=== PATIENT | female | born 1970 | race Caucasian/White ===

== ENCOUNTER 2017-02-19 09:16 | Emergency (ER) | payer OTHER ==
[~2017-02-19 09:16] MED LIST: MULT-506 PO; OXYC1TAB3 PO
[2017-02-19 09:22] VITALS: TEMP 36.7
[2017-02-19 10:19] LABS: URINE APPEARANCE CLOUDY (CLEAR); URINE COLOR DK YELLOW; URINE EPITHELIAL CELL AUTO >30 /lpf (0-5); URINE NITRITE NEG (NEG); URINE SPECIFIC GRAVITY 1.026 (1.000-1.030); UROBILINOGEN NEG (NEG); ZZUR CULT IF INDIC CLEAN CATCH YES
[2017-02-19 10:21] LABS: BASO % 0.4 %; BASO ABS # 0.03 K/uL (0-0.2); COMPLETE YES; EOS % 0.2 %; HEMATOCRIT 42.9 % (37-47); IG% 0.1 %; LYMPH % 38.9 %; LYMPH ABS # 3.13 K/uL (1.2-3.4); MEAN CELL VOLUME 88.5 fL (80-100); MEAN CORPUSCULAR HEMOGLOBIN 30.7 pg (25-34); MEAN CORPUSCULAR HGB CONC 34.7 g/dl (32-36); MEAN PLATELET VOLUME 10.1 fL (7.4-10.4); MONO % 5.1 %; NEUT % 55.3 %; PLATELET COUNT 235 K/uL (130-400); RED BLOOD COUNT 4.85 M/uL (4.2-5.4); WHITE BLOOD COUNT 8.05 K/uL (4.8-10.8)
[2017-02-19 10:29] LABS: MANUAL MICROSCOPIC REQUIRED? NO; REVIEW REQ? YES; URINE BILIRUBIN NEG (NEG)
[2017-02-19 10:32] LABS: URINE MUCUS PRESENT (NONE PRSENT)
--- NOTE | 2017-02-19 10:33 | DIAGNOSTIC IMAGING REPORT ---
HEAD WITHOUT CONTRAST (CT) CLINICAL HISTORY: 46 years-old Female with memory loss. Acute memory loss and altered mental status. TECHNIQUE: Multiple axial CT images of the head were obtained without contrast. A dose lowering technique was utilized adhering to the principles of ALARA. CT DOSE: 537.48 mGy.cm COMPARISON: None. FINDINGS: No acute intracranial hemorrhage, midline shift, intracranial mass, hydrocephalus, territorial ischemia or abnormal extra-axial collection. The calvarium is intact. The paranasal sinuses, mastoid air cells, and middle ear cavities are clear. IMPRESSION: No acute intracranial abnormality. The above report was generated using voice recognition software. It may contain grammatical, syntax or spelling errors. Electronically signed by: Lakhwinder Dennis M.D. 02/19/2017 10:32 AM Dictated Date/Time: 02/19/2017 10:29 AM
[2017-02-19 10:40] LABS: ALT/SGPT 15 U/L (12-78); BLOOD UREA NITROGEN 8 mg/dl (7-18); BUN/CREATININE RATIO 10.4 (10-20); CALCIUM 9.1 mg/dl (8.5-10.1); CARBON DIOXIDE 28 mmol/L (21-32); CHLORIDE 101 mmol/L (98-107); CREATININE 0.78 mg/dl (0.60-1.20); GLUCOSE 93 mg/dl (70-99); POTASSIUM 3.2 mmol/L (3.5-5.1); SODIUM 136 mmol/L (136-145)
[2017-02-19 10:41] LABS: ACETAMINOPHEN < 2 ug/ml (10-30)
[2017-02-19] MEDS ORDERED: NICO14DI31 TD (10:43)
[2017-02-19] MEDS ORDERED: ESCI1TAB6 PO (10:43)
[2017-02-19] MEDS ORDERED: ALPR-411 PO (10:43)
[2017-02-19 10:51] LABS: ALKALINE PHOSPHATASE 49 U/L (45-117); AST/SGOT 11 U/L (15-37)
[2017-02-19 11:05] LABS: BENZODIAZEPINE, URINE POS (NEG); COCAINE,URINE NEG (NEG); PHENCYCLIDINE, URINE NEG (NEG)
--- NOTE | 2017-02-19 11:29 | DIAGNOSTIC IMAGING REPORT ---
ABD/PELVIS WITHOUT FOR STONE HISTORY: 46 years-old Female abdominal pain/calcium oxalate in urine acute generalized abdominal pain with weight loss COMPARISON: None available TECHNIQUE: Multiple axial CT images of the abdomen and pelvis were obtained without IV contrast. A dose lowering technique was used consistent with the principals of CL. FINDINGS: Lung bases are generally clear with only minimal dependent subsegmental atelectasis. No pneumatosis or pneumoperitoneum. The imaged inferior cardiac chambers are unremarkable. Intermediate attenuating round circumscribed 1.5 x 1.1 cm lesion is noted within the lateral left hepatic lobe. Liver is otherwise unremarkable. Spleen, pancreas, gallbladder and adrenal glands are within normal limits. Kidneys, ureters and urinary bladder are unremarkable without renal calculi right arthrosis. Indeterminate 4 mm linear calcification is noted adjacent to the left adnexum. 2.2 x 2.1 cm cystic lesion of the left adnexum is also noted. Uterus and right adnexum are unremarkable. Aorta is normal in course and caliber. No bulky adenopathy identified. There is no bowel obstruction or focal bowel wall thickening identified. The large bowel is within normal limits. There is an air-filled tubular structure of the right lower quadrant noted suggesting a normal appendix. No right lower quadrant inflammatory changes identified. Soft tissues are unremarkable. Bones appear intact. IMPRESSION: 1. Nonspecific 4 mm calcification of the left hemipelvis is likely extra ureteral. No left-sided obstructive uropathy. No renal calculi identified. 2. Cystic structure of the left adnexum, 2.2 cm suggests dominant follicle. 3. No evidence of acute appendicitis. 4. Intermediate attenuating 1.5 cm lesion of the lateral left hepatic lobe is indeterminate. The above report was generated using voice recognition software. It may contain grammatical, syntax or spelling errors. Electronically signed by: Lakhwinder Dennis M.D. 02/19/2017 11:27 AM Dictated Date/Time: 02/19/2017 11:19 AM
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
[2017-02-19 12:23] VITALS: BP 125/82; PULSE 65; O2SAT 99
[2017-02-21 14:51] LABS: HYDROXYETHYLFLURAZEPAM CONF NEGATIVE NG/ML (CUTOFF=50); HYDROXYMIDAZOLAM NEGATIVE NG/ML (CUTOFF=50); HYDROXYTRIAZOLAM CONF NEGATIVE NG/ML (CUTOFF=50); TEMAZEPAM CONF NEGATIVE NG/ML (CUTOFF=50)
== END 2017-02-19 12:25 | disposition home or self-care (01) ==
LOC: C.EDB 09:19 → C.EDA 12:25
DX: N83.209 Unspecified ovarian cyst, unspecified side (principal); R10.9 Unspecified abdominal pain; F32.9 Major depressive disorder, single episode, unspecified; K76.9 Liver disease, unspecified; Z87.891 Personal history of nicotine dependence; Z79.899 Other long term (current) drug therapy; Z98.890 Other specified postprocedural states

== ENCOUNTER 2017-03-05 12:53 | Inpatient (IN) | payer OTHER ==
[~2017-03-05] VITALS: Ht 157.5 cm; Wt 43.1 kg
[~2017-03-05 12:53] MED LIST changes: +ALPR-411 PO; +ESCI1TAB6 PO; -MULT-506 PO; +NICO14DI31 TD; -OXYC1TAB3 PO
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
[2017-03-05 14:27] LABS: BASO % 0.4 %; BASO ABS # 0.03 K/uL (0-0.2); EOS % 0.3 %; EOS ABS # 0.02 K/uL (0-0.5); HEMOGLOBIN 14.6 g/dL (12.0-16.0); IG# 0.01 K/uL (0.00-0.02); LYMPH % 36.1 %; LYMPH ABS # 2.59 K/uL (1.2-3.4); MEAN CELL VOLUME 88.7 fL (80-100); MEAN CORPUSCULAR HEMOGLOBIN 30.1 pg (25-34); MONO ABS # 0.43 K/uL (0.11-0.59); NEUT % 57.1 %; NEUT ABS # 4.09 K/uL (1.4-6.5); PLATELET COUNT 233 K/uL (130-400); RED CELL DISTRIBUTION WIDTH CV 11.8 % (11.5-14.5); RED CELL DISTRIBUTION WIDTH SD 38.1 fL (36.4-46.3); WHITE BLOOD COUNT 7.17 K/uL (4.8-10.8)
[2017-03-05 14:36] LABS: ALT/SGPT 19 U/L (12-78); AST/SGOT 14 U/L (15-37); BLOOD UREA NITROGEN 11 mg/dl (7-18); CALCIUM 8.6 mg/dl (8.5-10.1); CARBON DIOXIDE 27 mmol/L (21-32); CREATININE 0.88 mg/dl (0.60-1.20); GLUCOSE 85 mg/dl (70-99); POTASSIUM 3.3 mmol/L (3.5-5.1); SODIUM 138 mmol/L (136-145)
[2017-03-05 14:47] LABS: ALKALINE PHOSPHATASE 43 U/L (45-117); TOTAL PROTEIN 6.9 gm/dl (6.4-8.2)
[2017-03-05] MEDS ORDERED: POTASSIUM CHLORIDE 20 MEQ/15 ML UDC PO STA (15:00)
[2017-03-05] MEDS ORDERED: MAGNESIUM OXIDE 400 MG TAB PO STA (15:00)
[2017-03-05] MEDS ORDERED: MULT-506 PO (15:35)
[2017-03-05] MEDS ORDERED: PARO1TAB27 PO (15:35)
[2017-03-05] MEDS ORDERED: KLN/5 PO (15:35)
[2017-03-05] MEDS ORDERED: hydrOXYzine HCL 25 MG TAB PO PRN ×2 (17:45)
[2017-03-05] MEDS ORDERED: MAGNESIUM HYDROXIDE SUSP 30 ML UDC PO PRN (17:45)
[2017-03-05] MEDS ORDERED: BISMUTH SUBSALICYLATE PER ML OMNICELL CHARGE PO PRN (17:45)
[2017-03-05] MEDS ORDERED: ACETAMINOPHEN 325 MG TAB PO PRN (17:45)
[2017-03-05] MEDS ORDERED: ALUMINUM/MAGNESIUM SUSP 30 ML UDC PO PRN (17:45)
[2017-03-05] MEDS ORDERED: SODIUM CHLORIDE 0.65% NA SOLN 45 ML (OCEAN) PRN (17:45)
--- NOTE | 2017-03-05 18:01 | Psychiatric Progress Notes ---
Psychiatric Progress Note Date of Service Mar 05, 2017. Notes Patient accepted for admission, apparently seen once previously in ED for ? [facility] clearance [facility]. Started Lexapro earlier this month, PDMP query shows a Xanax 0.5 mg script #[address] Tiki Anderson on 02/25 followed by Klonopin Rx by Dr. Peñaloza on 03/01 who started Paxil. Hasn't been taking meds regularly by report. On nicotine patch (staff to confirm dose) for smoking cessation. Orders entered.
[2017-03-05 18:09] VITALS: O2SAT 98
[2017-03-05 18:32] VITALS: BP 123/78; PULSE 67; TEMP 37; Ht 157.5 cm; Wt 43.1 kg
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
[2017-03-05] MEDS: CLONAZEPAM 0.5 MG TAB PO SCH (21:30)
--- NOTE | 2017-03-06 02:18 | NUR ---
admission orders and clinical information reviewed
[2017-03-06 06:37] VITALS: BP_SYST 87; BP_SYST 98; BP_DIAS 60; BP_DIAS 65; PULSE 58; PULSE 64; TEMP 37.1
[2017-03-06] MEDS ORDERED: PAROXETINE 20 MG TAB PO SCH (09:00)
[2017-03-06] MEDS: MULTIVITAMIN TAB PO SCH (09:14)
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
--- NOTE | 2017-03-06 12:29 | NUR ---
Pt is extremely depressed with flat affect and dysphoric mood. She continues to demonstrate severe depressive symptoms. Pt cries easily and speaks in a quiet tone of voice. She admits to active suicidal ideation prior to admission, is able to contract for safety in the hospital. She is missing her children and wishes she was home. States her one child is with pt's mother and the other is with the father. Pt's is at their house and pt is staying at her mother's house. Encouraging pt to eat due to wt loss prior to admission. She is eating some lunch presently.
--- NOTE | 2017-03-06 14:19 | NUR ---
Introduced self to pt's mother who came to visit. Discussed having a family meeting when pt better able to participate which mother is agreeable to (mother also indicated that she knows pt not ready yet). Asked mother about possible eating disorder and mother says that she doesn't think that pt's weight is caused by an eating disorder. She says until recently that pt always enjoyed eating and believes the stress has been a factor. Mother says that pt weighed 91lbs at her last PCP appt and that the appt prior she weighed 113lbs.
--- NOTE | 2017-03-06 14:33 | NUR ---
Malnutrition screen identified patient. See linked assessment. Addendum: 03/06/17 at [address] Amended: Links added.
[2017-03-06] MEDS ORDERED: NICOTINE POLACRILEX 2 MG GUM MT PRN (18:30)
[2017-03-06] MEDS: NICOTINE 14 MG/24 HR TDSY TD SCH (19:31)
[2017-03-06] MEDS: CLONAZEPAM 0.5 MG TAB PO SCH (20:51)
--- NOTE | 2017-03-06 22:29 | NUR ---
Pt has spent a large amount of time in her room this evening in bed. Pt has a flat affect and is very limited in her interactions. She had a visit from her mother this afternoon and again from her father and son this evening. Pt took her HS medications without difficulty. Pt continues on q 15 minute checks.
--- NOTE | 2017-03-07 02:43 | NUR ---
24 hour chart orders reviewed.
[2017-03-07 06:40] VITALS: BP 93/59; PULSE 64; TEMP 36.8
[2017-03-07] MEDS: PAROXETINE 20 MG TAB PO SCH (08:50)
[2017-03-07] MEDS: NICOTINE 14 MG/24 HR TDSY TD SCH (08:50)
[2017-03-07] MEDS: ARIPIprazole TAB 5 MG TAB PO SCH (08:50)
[2017-03-07] MEDS: MULTIVITAMIN TAB PO SCH (08:50)
[2017-03-07] MEDS ORDERED: ACETAMINOPHEN 325 MG TAB PO PRN (09:30)
--- NOTE | 2017-03-07 11:14 | NUR ---
Pt. ate 80% of breakfast and has attended all AM programming with minimal prompting. Responses are somewhat slowed but are appropriate. Affect is flat and pt. looks depressed. Pt. plans to visit with her mother, who is a support, this afternoon.
--- NOTE | 2017-03-07 11:20 | Psychiatric Progress Notes ---
Progress Note Date of Service Mar 07, 2017. Interval History Eli Pulido is a 46-year-old female admitted on Mar 05, 2017 at 17:45 who currently is staying temporarily with her parents and her teenaged son. Eli Pulido was admitted on a 302 involuntary commitment. Patient is admitted from home. The patient was brought to the ED by family. Information provided by the patient is considered to be reliable, but is somewhat limited by her impaired concentration and focus. Chief Complaint "I just feel sad, I want to go home". Subjective Patient was seen & assessed interval progress reviewed with Nursing. Reported pt continues to appear flat and easily overwhelmed. Mother has continued to visit and make phone calls to check in periodically. Pt was seen today in order to assess progress since admission. Pt states she feels confused groggy. She is unable to remember the majority of her visit with the psychiatrist yesterday and asks about medication changes as she is unable to recall their discussion. Pt states she has been noticing confusion and "felt like I had a stroke the other day at work". She admits she knows she is not usually like this. Pt reports she feels her is upset with her for choosing to no longer visit with his family. She states he was with his family in [place] for a few weeks, during which time she and her teenage son have been staying with the patient's parents. Pt reports being afraid that her would bring his family home with him, and she does not like to be around them as she states they constantly argue and she feels uncomfortable. This has caused tension in her relationship with her recently. She states she has had visits from her parents and son yesterday evening, but has yet to hear from her . She reports she received conflicting recommendations yesterday about whether to reach out to him, so she chose not to contact him. She is scared he will be upset that she is in the hospital as he has gotten angry about medical bills in the past with their children. Pt initially reports current SI, and then states, "well not really, but I am still really sad". She reports headache this morning. Pt had just been given increased dose of Paxil 30mg and first dose of Abilify 2.5mg prior to my meeting with her. She voices no concerns at this point in time. Review of Systems Psych: denies symptoms other than stated above Constitutional: reports headache Cardiovascular: denied GI: denied Neurologic: denied Remainder of 10 body systems also reviewed and denied other than noted above. Sleep Information Total Hours of Sleep: 7.25 Meal Information Percent of Breakfast Consumed: 80 Percent of Lunch Consumed: 60 Percent of Dinner Consumed: 50 Mental Status Exam During interview pt is: alert and oriented, cooperative Appearance: appropriately dressed (in robe and pajamas) Eye contact is: fair Motor behavior is: psychomotor retardation Speech: other (slowed and quiet with little spontaneity.) Affect: depressed, flat Mood is: depressed Thought process: blocking, concrete, other (confused and slowed in responses to questioning) Thought content: reality based without delusions (continuing with statements about 's anticipated response to medical bills), hopelessness, worthlessness Suicidal thought are: present, Plan: denied, Intent: denied Homicidal thoughts are: denied Hallucinations: denies auditory, denies visual Cognition: attention grossly intact, language grossly intact, other ( difficulty remembering conversations from yesterday. ) Intelligence estimated to be: average Insight: limited Judgement: limited Impression This 46-year-old woman presents with a history of recurrent major depressive episodes that began during late adolescence or early adulthood. Her most recent episode evidently began 1 month or more ago. Patient reportedly ask her mother to kill her several days ago, she acknowledges recurrent suicidal thoughts, and has severe vegetative signs and symptoms of depression that, among other things, have resulted in a 30 pound weight loss with the patient is substantially below her ideal body weight. She requires assistance from her mother for activities of daily living, such as dressing, arising from bed, showering, and eating. The patient acknowledges that she has not been adherent with the recommended medications as prescribed by a tele-psychiatrist, and, more recently, by her primary care physician. Plan (1) Suicidal ideation 03/06/17 -- the patient acknowledges ongoing intermittent suicidal thoughts. She tells me that she has never had an active suicidal plan, although the record indicates that she did ask her mother to "kill her." She repeatedly did not respond to questions concerning active suicidal intent, but responds instead by saying "I just want to get better." She tells me that she will not make any suicide attempts in the hospital because she fears that this will lengthen her hospital stay. 03/07/17 -- patient is vague about current suicidal ideation, admitting at first , then stating she "just feels sad". (2) Depression 03/06/17 - the patient has been started on paroxetine 20 mg daily, and thus far has been able to tolerate it well. She denies any current side effects. Today, we will increase her dose of Paxil to 30 mg daily, and began aripiprazole 2.5 mg daily as an adjunct. I'm also concerned that the patient may have an underlying psychosis involving her . For example, she trembles with fear when considering whether to inform her that she has been hospitalized because she believes she will "scream at me" and "be furious" because she is using his insurance for the hospitalization. The patient does contract for safety in the hospital, and has some future orientation in that she sets a goal going home to be with her family and "getting better. 03/07/17 - Pt received increased dose of Paxil 30mg along with first dose of Abilify 2.5mg this morning. Received just prior to my visit with her, therefore unable to assess tolerance this early in the dose. Pt is ongoing with concerns that her will react poorly to the news of her hospitalization. She questions plan for medications and it was explained that the increased dose of Paxil and adding Abilify were to target her ongoing depression and suicidal thoughts as well as work to clear any confusion or clouding she may be experiencing. Pt inquires about length of stay and was informed that we would be meeting with her daily to assess her progress and gauge timing of discharge. No changes to psychiatric medications at this time as she just received increased doses today. Tylenol was ordered for her headache which she was told she would need to ask for at the nurses station. Discharge / Aftercare Planning Primary Care Physician: Name: Dr. Peñaloza Dental Prosthetist: Name: none Visit Code E&M Code: 95533 Inventory Assets Strengths: Educated. Has a profession. Seeking to advance her career. Supportive family. Actually concerned about her children. Needs: The patient is severely depressed and grossly underweight. A dietary consult is being arranged. 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 She explains that she had become so depressed that she wasn't able to focus, concentrate and attend to her daily tasks at work.) Stable relationships: Yes Supportive family: Yes Good rapport with provider: Yes Absence of risk factors above: No Data Vital Signs Last 24 Hrs: Date Time Temp Pulse Resp B/P (MAP) Pulse Ox O2 Delivery O2 Flow Rate FiO2 03/07/17 06:40 36.8 64 16 93/59 93/59 Meds Administered Last 24 Hrs: Meds Administered (Past 24Hrs) Medications (Trade) Dose Ordered Sig/Gerson Route Start Time Stop Time Status Last Admin Dose Admin Magnesium Oxide (Mag-Ox Tab) 800 mg ONE STAT PO 03/05/17 15:00 03/05/17 15:02 DC 03/05/17 15:00 800 MG Potassium Chloride (Daniela Ciel Elix) 40 meq NOW STAT PO 03/05/17 15:00 03/05/17 15:02 DC 03/05/17 15:00 40 MEQ Acetaminophen (Tylenol Tab) 650 mg Q4H PRN PO 03/05/17 17:45 04/04/17 17:44 03/05/17 19:21 650 MG Clonazepam (Klonopin Tab) 0.5 mg HS PO 03/05/17 21:00 04/04/17 20:59 03/06/17 20:51 0.5 MG Multivitamins (Multivitamin Tab) 1 tab DAILY PO 03/06/17 09:00 04/05/17 08:59 03/07/17 08:50 1 TAB Paroxetine HCl (pAXil TAB) 20 mg QAM PO 03/06/17 09:00 03/06/17 11:29 DC 03/06/17 09:14 20 MG Paroxetine HCl (pAXil TAB) 30 mg QAM PO 03/07/17 09:00 04/06/17 08:59 03/07/17 08:50 30 MG Aripiprazole (Abilify Tab) 2.5 mg QAM PO 03/07/17 09:00 04/06/17 08:59 03/07/17 08:50 2.5 MG Nicotine (Nicoderm Cq 14MG Patch) 1 patch QAM TD 03/07/17 09:00 04/06/17 08:59 03/07/17 08:50 1 PATCH Problem Qualifiers (1) Depression: Depression Type: major depressive disorder Major depression recurrence: recurrent Active/Remission status: currently active Major depression episode severity: severe Psychotic features: without psychotic features Qualified Codes: F33.2 - Major depressive disorder, recurrent severe without psychotic features
--- NOTE | 2017-03-07 15:41 | NUR ---
Spoke with pt after her visit with her mother and daughter. Pt was tearful and indicated that she loves her visits but is saddened when they end. Pt indicated she would like to have a family/support meeting with her parents, as that is the home she will be returning to once she is discharged. Pt will speak with her mother tonight during visiting hours about a time for the family meeting tomorrow. Pt indicated several times that she wants to feel better, and she will do what she needs to in order for that to happen. Pt displayed a flat affect and was tearful intermittently. Pt denied having active SI or HI.
--- NOTE | 2017-03-07 20:47 | NUR ---
Pt noted to attend all unit programming w/ minimal staff prompts.During her free time she spends her free time resting in bed.She describes her overall mood as depressed.Staff discussed w/ pt that she often feels overwhelmed by her stressors.She describes a pattern of trying to problem solve everything at once,when she fails to do this it reinforces how hopeless her situation is.Pt reports having a positive visit w/ her father and son.Her father is going to call the unit tomorrow AM as to when he will be available for a meeting.
[2017-03-07] MEDS: CLONAZEPAM 0.5 MG TAB PO SCH (21:27)
--- NOTE | 2017-03-08 01:53 | NUR ---
24 hour chart orders reviewed.
[2017-03-08 06:40] VITALS: BP_SYST 85; BP_SYST 94; BP_DIAS 47; BP_DIAS 57; PULSE 54; PULSE 66; TEMP 36.8
[2017-03-08] MEDS: ARIPIprazole TAB 5 MG TAB PO SCH (09:15)
[2017-03-08] MEDS: MULTIVITAMIN TAB PO SCH (09:15)
[2017-03-08] MEDS: PAROXETINE 20 MG TAB PO SCH (09:15)
[2017-03-08] MEDS: NICOTINE 14 MG/24 HR TDSY TD SCH (09:16)
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
--- NOTE | 2017-03-08 11:36 | Psychiatric Progress Notes ---
Progress Note Date of Service Mar 08, 2017. Interval History Eli Pulido is a 46-year-old female admitted on Mar 05, 2017 at 17:45 who currently is staying temporarily with her parents and her teenaged son. Eli Pulido was admitted on a 302 involuntary commitment. Patient is admitted from home. The patient was brought to the ED by family. Information provided by the patient is considered to be reliable, but is somewhat limited by her impaired concentration and focus. Chief Complaint "I felt a little anxious last night". Subjective Patient was seen & assessed interval progress reviewed with Treatment Team. - slept well through the night - visits with mother, father, and daughter yesterday evening - family meeting set up with mother for today at 13:00 Pt was seen today to assess progress since admission. Pt reports she feels like she has been doing a bit better now that she is more comfortable with the staff. She states a major stressor for her previously had been managing work along with school and caring for her children. When asked what pt felt she still needed to work on to feel comfortable with discharge, she stated "I need to come up with a schedule. I need to plan when I wake up and when I'm doing things. 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 Pt states she feels like she need to "think about my marriage". She is unable to share her thoughts at this time as far as separation from her versus trying to work things out with him. She continues to voice concern about him finding out she is in the hospital as she feels he will be angry about the medical bill and is not sure she is still under his insurance. Pt states she is planning to have a meeting with her mother this afternoon, but she is unsure about things she is planning to discuss. Pt reports she slept well last evening. She states she does not always have an appetite, but she is "forcing myself to eat so that I can get better." Pt denies SI/HI, A/V hallucinations. She states she had a headache yesterday morning which resolved without medication. Otherwise, she voices no complaints about her current medications, no concerns for side effects. Medication plan was discussed with patient again in detail as she was unable to recall her initial conversation with Dr. Ragsdale as to adding Abilify as adjunctive treatment to increased dose of Paxil. Pt verbalizes understanding and is in agreement with the plan. Review of Systems Psych: denies symptoms other than stated above Constitutional: denied Cardiovascular: denied GI: denied Neurologic: denied Remainder of 10 body systems also reviewed and denied other than noted above. Sleep Information Total Hours of Sleep: 7.75 Meal Information Percent of Breakfast Consumed: 75 Percent of Lunch Consumed: 60 Percent of Dinner Consumed: 50 Mental Status Exam During interview pt is: alert and oriented, cooperative Appearance: appropriately dressed Eye contact is: fair Motor behavior is: psychomotor retardation Speech: other (increasing mildly in spontaneity, remains slowed and quiet) Affect: depressed, flat Mood is: depressed Thought process: blocking, concrete, other (slow in response to questioning) Thought content: reality based without delusions (continuing with statements about 's anticipated response to medical bills), hopelessness, worthlessness Suicidal thought are: denied, Plan: denied, Intent: denied Homicidal thoughts are: denied Hallucinations: denies auditory, denies visual Cognition: attention grossly intact, language grossly intact, other ( difficulty remembering conversations about treatment plan) Intelligence estimated to be: average Insight: limited Judgement: limited Impression This 46-year-old woman presents with a history of recurrent major depressive episodes that began during late adolescence or early adulthood. Her most recent episode evidently began 1 month or more ago. Patient reportedly ask her mother to kill her several days ago, she acknowledges recurrent suicidal thoughts, and has severe vegetative signs and symptoms of depression that, among other things, have resulted in a 30 pound weight loss with the patient is substantially below her ideal body weight. She requires assistance from her mother for activities of daily living, such as dressing, arising from bed, showering, and eating. The patient acknowledges that she has not been adherent with the recommended medications as prescribed by a tele-psychiatrist, and, more recently, by her primary care physician. Plan (1) Suicidal ideation 03/06/17 -- the patient acknowledges ongoing intermittent suicidal thoughts. She tells me that she has never had an active suicidal plan, although the record indicates that she did ask her mother to "kill her." She repeatedly did not respond to questions concerning active suicidal intent, but responds instead by saying "I just want to get better." She tells me that she will not make any suicide attempts in the hospital because she fears that this will lengthen her hospital stay. 03/07/17 -- patient is vague about current suicidal ideation, admitting at first , then stating she "just feels sad". 03/08/17 -- patient denies suicidal ideation during this visit, but continues to remain overwhelmed and appears flat in affect and reports ongoing depressive symptoms. (2) Depression 03/06/17 - the patient has been started on paroxetine 20 mg daily, and thus far has been able to tolerate it well. She denies any current side effects. Today, we will increase her dose of Paxil to 30 mg daily, and began aripiprazole 2.5 mg daily as an adjunct. I'm also concerned that the patient may have an underlying psychosis involving her . For example, she trembles with fear when considering whether to inform her that she has been hospitalized because she believes she will "scream at me" and "be furious" because she is using his insurance for the hospitalization. The patient does contract for safety in the hospital, and has some future orientation in that she sets a goal going home to be with her family and "getting better. 03/07/17 - Pt received increased dose of Paxil 30mg along with first dose of Abilify 2.5mg this morning. Received just prior to my visit with her, therefore unable to assess tolerance this early in the dose. Pt is ongoing with concerns that her will react poorly to the news of her hospitalization. She questions plan for medications and it was explained that the increased dose of Paxil and adding Abilify were to target her ongoing depression and suicidal thoughts as well as work to clear any confusion or clouding she may be experiencing. Pt inquires about length of stay and was informed that we would be meeting with her daily to assess her progress and gauge timing of discharge. No changes to psychiatric medications at this time as she just received increased doses today. Tylenol was ordered for her headache which she was told she would need to ask for at the nurses station. 03/08/17 - Pt denies side effects or complaints about medication changes. She received first dose of Abilify 2.5mg yesterday with Paxil increased to 30mg yesterday as well. She states she has tolerated them well. Discussion was had with patient after she admitted she has had difficulty remembering her visits with providers. Intent for starting Abilify as adjunct to target depressive symptoms along with increase in Paxil were explained. Pt asked questions appropriately and inquires as to side effects were addressed. Risks, benefits, side effects, and alternatives were discussed. Ultimately, patient voiced understanding and agreed to current plan. She reports she has noticed an improvement in clearing of her thought process over the past day and is optimistic that this will continue. Will continue to observe for response to Abilify. Discharge / Aftercare Planning Primary Care Physician: Name: Dr. Peñaloza [facility] Date of Appointment: Mar 15, 2017 Time of Appointment: 9:45 a.m. Psychiatrist: Name: [facility], Dr. Price Date of Appointment: Mar 21, 2017 Time of Appointment: 11:30 AM Therapist: Name: [facility] Sarah Casey Date of Appointment: Mar 13, 2017 Time of Appointment: 4 p.m. Garnett Feeder: Name: none Visit Code E&M Code: 33445 Inventory Assets Strengths: Educated. Has a profession. Seeking to advance her career. Supportive family. Actually concerned about her children. Needs: The patient is severely depressed and grossly underweight. A dietary consult is being arranged. 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 She explains that she had become so depressed that she wasn't able to focus, concentrate and attend to her daily tasks at work.) Stable relationships: Yes Supportive family: Yes Good rapport with provider: Yes Absence of risk factors above: No Data Vital Signs Last 24 Hrs: Date Time Temp Pulse Resp B/P (MAP) Pulse Ox O2 Delivery O2 Flow Rate FiO2 03/08/17 06:40 36.8 54 16 94/57 66 85/47 Meds Administered Last 24 Hrs: Meds Administered (Past 24Hrs) Medications (Trade) Dose Ordered Sig/Gerson Route Start Time Stop Time Status Last Admin Dose Admin Paroxetine HCl (pAXil TAB) 30 mg QAM PO 03/07/17 09:00 04/06/17 08:59 03/08/17 09:15 30 MG Aripiprazole (Abilify Tab) 2.5 mg QAM PO 03/07/17 09:00 04/06/17 08:59 03/08/17 09:15 2.5 MG Nicotine (Nicoderm Cq 14MG Patch) 1 patch QAM TD 03/07/17 09:00 04/06/17 08:59 03/08/17 09:16 1 PATCH Lab Results Last 24 Hrs: Last 24 Hours Test 03/08/17 07:02 Fasting Glucose 81 mg/dl Triglycerides Level 95 mg/dl Cholesterol Level 90 mg/dl HDL Cholesterol 36 mg/dl LDL Cholesterol, Calculated 35 mg/dl VLDL Cholesterol, Calculated 19 mg/dl Cholesterol/HDL Ratio 2.5 Problem Qualifiers (1) Depression: Depression Type: major depressive disorder Major depression recurrence: recurrent Active/Remission status: currently active Major depression episode severity: severe Psychotic features: without psychotic features Qualified Codes: F33.2 - Major depressive disorder, recurrent severe without psychotic features
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
--- NOTE | 2017-03-08 15:06 | NUR ---
Provided pt 1:1 for 15 minutes after pt's family meeting. Pt discussed that her meeting was positive and that her mother, who was part of the meeting, is very supportive, as well as her father and children. Pt discussed her family during 1:1 and a little about herself. Pt was not expansive when answering therapist's questions and required prompting/probing in order to learn more information. 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 Pt stated "I'm not sure if it was a good idea now" and went on to discuss that it was a very stressful time and she struggled with balancing all of her life responsibilities then. 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 Encouraged pt to acknowledge her successes, and to not be afraid to utilize her supports to help her when needed, just as she did during other stressful times in her life. Praised pt for taking the time to get the help she needed and for taking care of herself now. Pt was receptive to this and appreciative of therapist's time. Will continue to reassure and support.
[2017-03-08] MEDS: CLONAZEPAM 0.5 MG TAB PO SCH (21:26)
--- NOTE | 2017-03-08 21:28 | NUR ---
This counselor received a phone call from Eli's mother, Marta Rivera, who stated that she had heard from her son and grandson who had been present during visiting hours that staff had denied access to a visitor for Eli and Marta was calling to find out who this was as she was worried about her daughter. This counselor informed the mother that I having been here since 1445 knew nothing of anyone being denied access and asked if I could put her on hold to confer with the charge nurse and med nurse if they knew anything about this. This counselor did confirm with the other nurses that as far as they were aware no unauthorized visitors had presented this evening. I got back on the phone and informed the mother of this. When asked where her son and grandson had heard that staff had denied access she stated she wasn't sure and hadn't asked but she would find out tomorrow. She asked if this could have happened on the shift before mine and I informed her that this had not been passed on if it had and this would be incredibly abnormal. I did encourage her to talk to Giulia who was in charge today on hi and would be tomorrow as well. The mother stated that she felt relieved to hear this and thought that possibly the Eli's brother and son misheard something. She stated that she would be able to "Sleep better tonight now that I know." After ending the phone call this counselor did call Nichole the unit nurse ward secretary to make sure she had not denied access to anyone. She confirmed that no one unauthorized had presented to the unit and that when the patient's father, brother, and son came she simply asked who they where when they stated they were here to see Eli. Nichole told this counselor she had told them we were asking this because there was someone on Eli's list who she did not want to visit but did not tell them who this was. Nichole felt that the brother and son possibly misunderstood this statement and that was the basis for the misinformation passed along.
--- NOTE | 2017-03-08 21:45 | NUR ---
Pt visited with her father, son and brother this evening. In community meeting, she stated she was "happy and excited to see them". Her affect is incongruent as she presents with flat affect and appears depressed and withdrawn. She was not noted to brighten when her family visited. She attended groups, but had minimal participation even when prompted. Her appetite remains poor, as she ate 25% of her supper. She is taking all meds as prescribed. She has not voiced any thoughts of self harm but is not forthcoming when asked if she would be safe if not in the hospital. She contracts for safety on the unit. She remains on suicide precautions.
--- NOTE | 2017-03-09 01:28 | NUR ---
24 hour chart orders reviewed.
[2017-03-09 06:49] VITALS: BP_SYST 85; BP_SYST 87; BP_DIAS 54; PULSE 52; PULSE 73; TEMP 36.9
[2017-03-09] MEDS: CALCIUM 600MG + VIT D 400 IU TAB PO SCH (09:01)
[2017-03-09] MEDS: ARIPIprazole TAB 5 MG TAB PO SCH (09:02)
[2017-03-09] MEDS: PAROXETINE 20 MG TAB PO SCH (09:03)
[2017-03-09] MEDS: MULTIVITAMIN TAB PO SCH (09:03)
[2017-03-09] MEDS: NICOTINE 14 MG/24 HR TDSY TD SCH (09:04)
--- NOTE | 2017-03-09 13:09 | NUR ---
Pt noted to attend all unit programming w/ minimal staff prompts.She has showing more effort not to withdraw in her bedroom during her free time.Pt continues to harbor a great deal of anxiety and ambivalence regarding her feelings towards her .She is still wanting out of the relationship,the pt however,still acknowledges caring about her which causes a great deal of inner conflict.Pt describes her overall mood is slowly improving and her suicidality is diminishing.Objectively,the pt appears markedly despondent w/o any facial animation.
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
[2017-03-09] MEDS: CLONAZEPAM 0.5 MG TAB PO SCH (21:11)
--- NOTE | 2017-03-09 23:00 | NUR ---
Pt attended and participated in all groups this evening. She rated her mood a "8-9" and said that she felt "pretty good." She continues to have a flat affect. She came to the nurse's station this evening to ask for her HS meds. She had a visit from her brother, son and daughter that went well. Pt continues on q 15 minute checks.
--- NOTE | 2017-03-10 02:04 | NUR ---
24 hour chart orders reviewed.
[2017-03-10 06:46] VITALS: BP_SYST 88; BP_SYST 96; BP_DIAS 50; BP_DIAS 59; BP_DIAS 85; PULSE 59; PULSE 64; TEMP 36.7
[2017-03-10] MEDS: ARIPIprazole TAB 5 MG TAB PO SCH (09:03)
[2017-03-10] MEDS: CALCIUM 600MG + VIT D 400 IU TAB PO SCH (09:03)
[2017-03-10] MEDS: PAROXETINE 20 MG TAB PO SCH (09:04)
[2017-03-10] MEDS: NICOTINE 14 MG/24 HR TDSY TD SCH (09:04)
[2017-03-10] MEDS: MULTIVITAMIN TAB PO SCH (09:04)
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
--- NOTE | 2017-03-10 17:10 | Psychiatric Progress Notes ---
Progress Note Date of Service Mar 10, 2017. Interval History Eli Pulido is a 46-year-old female admitted on Mar 05, 2017 at 17:45 who currently is staying temporarily with her parents and her teenaged son. Eli Pulido was admitted on a 302 involuntary commitment. Patient is admitted from home. The patient was brought to the ED by family. Information provided by the patient is considered to be reliable, but is somewhat limited by her impaired concentration and focus. Chief Complaint "a little better". Subjective Patient was seen & assessed interval progress reviewed with nursing. pt endorsed some mild improvement in her mood and in ability to process her thoughts and concentration and express herself. Had a number of family members visit today as well and felt this was helpful and was going well for her. Pt denied SI. She watched only some of the [employer] football game last night before going to her room. She reported feeling lightheaded some times, more as first awakens. no paranoid or delusional thinking evident, denied AH or VH. pt ambivalent about contacting while hear and feels gets conflicting advice. pt inquired about estimated length fo stay. denied other s/e pt feels she eat too much last night leaving her to have abd discomfort last night, eat 75% of lunch and denied abd discomfort this afternoon anxiety lessening Review of Systems Constitutional: + fatigue Respiratory: No cough, No sputum, No wheezing, No shortness of breath, No dyspnea on exertion, No dyspnea at rest, No hemoptysis, No problem reported Cardiovascular: No chest pain, No orthopnea, No PND, No edema, No claudication , No palpitations, No problem reported Abdomen: + pain Psychiatric: + depression symptoms, + anxiety, + insomnia Sleep Information Total Hours of Sleep: 7.50 Meal Information Percent of Breakfast Consumed: 50 Percent of Lunch Consumed: 75 Percent of Dinner Consumed: 75 Mental Status Exam During interview pt is: alert and oriented, cooperative Appearance: appropriately dressed Eye contact is: good Motor behavior is: psychomotor retardation Speech: other (more spontaneous speech and wihtout the delay in onset or responses ) Affect: depressed, blunted Mood is: depressed Thought process: linear, logical, clear, coherent, concrete (lessened in severity though) Thought content: reality based without delusions (continuing with statements about 's anticipated response to medical bills), hopelessness, worthlessness Suicidal thought are: denied, Plan: denied, Intent: denied Homicidal thoughts are: denied Hallucinations: denies auditory, denies visual Cognition: attention grossly intact, language grossly intact, other Intelligence estimated to be: average Insight: limited Judgement: limited Impression This 46-year-old woman presents with a history of recurrent major depressive episodes that began during late adolescence or early adulthood. Her most recent episode evidently began 1 month or more ago. Patient reportedly ask her mother to kill her several days ago, she acknowledges recurrent suicidal thoughts, and has severe vegetative signs and symptoms of depression that, among other things, have resulted in a 30 pound weight loss with the patient is substantially below her ideal body weight. She requires assistance from her mother for activities of daily living, such as dressing, arising from bed, showering, and eating. The patient acknowledges that she has not been adherent with the recommended medications as prescribed by a tele-psychiatrist, and, more recently, by her primary care physician. paxil 30mg abilify 2.5mg with some mild initial improvement in engagement and expression of her thought process noted. addressing psychosocial stressors, family meeting with mother occurred, pt not letting be aware of admission to date. BP on low side with some fleeting lightheadedness at times, nadine as awakens wt gain is occurring Plan (1) Suicidal ideation 03/06/17 -- the patient acknowledges ongoing intermittent suicidal thoughts. She tells me that she has never had an active suicidal plan, although the record indicates that she did ask her mother to "kill her." She repeatedly did not respond to questions concerning active suicidal intent, but responds instead by saying "I just want to get better." She tells me that she will not make any suicide attempts in the hospital because she fears that this will lengthen her hospital stay. 03/07/17 -- patient is vague about current suicidal ideation, admitting at first , then stating she "just feels sad". 03/08/17 -- patient denies suicidal ideation during this visit, but continues to remain overwhelmed and appears flat in affect and reports ongoing depressive symptoms. (2) Depression 03/06/17 - the patient has been started on paroxetine 20 mg daily, and thus far has been able to tolerate it well. She denies any current side effects. Today, we will increase her dose of Paxil to 30 mg daily, and began aripiprazole 2.5 mg daily as an adjunct. I'm also concerned that the patient may have an underlying psychosis involving her . For example, she trembles with fear when considering whether to inform her that she has been hospitalized because she believes she will "scream at me" and "be furious" because she is using his insurance for the hospitalization. The patient does contract for safety in the hospital, and has some future orientation in that she sets a goal going home to be with her family and "getting better. 03/07/17 - Pt received increased dose of Paxil 30mg along with first dose of Abilify 2.5mg this morning. Received just prior to my visit with her, therefore unable to assess tolerance this early in the dose. Pt is ongoing with concerns that her will react poorly to the news of her hospitalization. She questions plan for medications and it was explained that the increased dose of Paxil and adding Abilify were to target her ongoing depression and suicidal thoughts as well as work to clear any confusion or clouding she may be experiencing. Pt inquires about length of stay and was informed that we would be meeting with her daily to assess her progress and gauge timing of discharge. No changes to psychiatric medications at this time as she just received increased doses today. Tylenol was ordered for her headache which she was told she would need to ask for at the nurses station. 03/08/17 - Pt denies side effects or complaints about medication changes. She received first dose of Abilify 2.5mg yesterday with Paxil increased to 30mg yesterday as well. She states she has tolerated them well. Discussion was had with patient after she admitted she has had difficulty remembering her visits with providers. Intent for starting Abilify as adjunct to target depressive symptoms along with increase in Paxil were explained. Pt asked questions appropriately and inquires as to side effects were addressed. Risks, benefits, side effects, and alternatives were discussed. Ultimately, patient voiced understanding and agreed to current plan. She reports she has noticed an improvement in clearing of her thought process over the past day and is optimistic that this will continue. Will continue to observe for response to Abilify. 03/09/17 -as pt does not appear as thought blocked as described previously and unclear if psychotic features, as is described as rather controlling and perhaps emotionally abusive will maintained newly rx'd paxil and Abilify at current doses for now to help minimize s/e's from emerging. monitoring for continued improvement in clearing of thought processing and expression of her thoughts -Phosphorous, Mg, Ca nl 03/10 -pt having some mild but notable improvement, BP low, but had low readings since early in admission. wt gain is occurring, will maintain meds unchanged for now. Discharge / Aftercare Planning Primary Care Physician: Name: Shelly Putnam [place] Date of Appointment: Mar 15, 2017 Time of Appointment: 9:45 a.m. Psychiatrist: Name: [facility], Dr. Anderson Date of Appointment: Mar 21, 2017 Time of Appointment: 11:30 AM Therapist: Name: [facility], Sarah Calhoun Date of Appointment: Mar 13, 2017 Time of Appointment: 4 p.m. Bow Maker: Name: none Visit Code E&M Code: 92308 Inventory Assets Strengths: Educated. Has a profession. Seeking to advance her career. Supportive family. Actually concerned about her children. Needs: The patient is severely depressed and grossly underweight. A dietary consult is being arranged. 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 She explains that she had become so depressed that she wasn't able to focus, concentrate and attend to her daily tasks at work.) Stable relationships: Yes Supportive family: Yes Good rapport with provider: Yes Absence of risk factors above: No Data Vital Signs Last 24 Hrs: Date Time Temp Pulse Resp B/P (MAP) Pulse Ox O2 Delivery O2 Flow Rate FiO2 03/10/17 06:46 36.7 59 16 96/85 64 96/59 88/50 Meds Administered Last 24 Hrs: Meds Administered (Past 24Hrs) Medications (Trade) Dose Ordered Sig/Gerson Route Start Time Stop Time Status Last Admin Dose Admin Calcium/Vitamin D (Caltrate Plus Tab) 1 tab DAILY PO 03/09/17 09:00 04/08/17 08:59 03/10/17 09:03 1 TAB Problem Qualifiers (1) Depression: Depression Type: major depressive disorder Major depression recurrence: recurrent Active/Remission status: currently active Major depression episode severity: severe Psychotic features: without psychotic features Qualified Codes: F33.2 - Major depressive disorder, recurrent severe without psychotic features
[2017-03-10] MEDS: CLONAZEPAM 0.5 MG TAB PO SCH (21:53)
--- NOTE | 2017-03-10 22:55 | NUR ---
Pt's mother approached staff to let us know that she feels pt "is having difficulty with her memory and is less talkative today". Pt did talk about this later in the evening and agreed she was having difficulty, but that as the shift has progressed she has felt an overall improvement. She did attend and participate in all unit programming, rating her overall mood a "7-8/10" and feeling "encouraged" because her thoughts improved. Her affect is flat, with some brightening on interaction. She denies thoughts of self harm. She remains on suicide precautions.
--- NOTE | 2017-03-11 04:38 | NUR ---
24 hour chart orders reviewed
[2017-03-11 06:48] VITALS: BP_SYST 91; BP_SYST 93; BP_DIAS 53; BP_DIAS 56; PULSE 62; PULSE 64; TEMP 36.5
[2017-03-11] MEDS: ARIPIprazole TAB 5 MG TAB PO SCH (08:56)
[2017-03-11] MEDS: PAROXETINE 20 MG TAB PO SCH (08:57)
[2017-03-11] MEDS: MULTIVITAMIN TAB PO SCH (08:57)
[2017-03-11] MEDS: NICOTINE 14 MG/24 HR TDSY TD SCH (08:57)
[2017-03-11] MEDS: CALCIUM 600MG + VIT D 400 IU TAB PO SCH (08:57)
--- NOTE | 2017-03-11 13:44 | NUR ---
Pt noted to attend all unit programming w/minimal staff prompts.She offers little in group.Pt endorses feeling "anxious" regarding being able to manage her stress and falling back to feeling overwhelmed and hopeless.She appears markedly depressed.She spends her free time resting in bed in ,away from staff and peers.
--- NOTE | 2017-03-11 14:48 | Psychiatric Progress Notes ---
Progress Note Date of Service Mar 11, 2017. Interval History Eli Pulido is a 46-year-old female admitted on Mar 05, 2017 at 17:45 who currently is staying temporarily with her parents and her teenaged son. Eli Pulido was admitted on a 302 involuntary commitment. Patient is admitted from home. The patient was brought to the ED by family. Information provided by the patient is considered to be reliable, but is somewhat limited by her impaired concentration and focus. Chief Complaint "a bit better today". Subjective Patient was seen & assessed interval progress reviewed with nursing. pt took a nap after lunch but feels better in energy now. Today is her birthday and family visiting and brought in cupcakes and brought her a sandwich, she eat some of the sandwich but has not had a cupcake as of yet. She is eating 1/2-3/ 4 of her meals but not complaining of feeling over full past 2 days. pt denied si or hi. Pt feels mood is improving some and that thinking is further clearing up and finding able to express self easier and to concentrate better. finding visiting from family helpful. pt aiming to be able to leave the hospital shortly. she is thinking that she needs to be futher improved before she would be ready and up for talking to her . lightheaded briefly when first awakes but then resolved for rest of the day. has had nl bowel movements past couple days. denied other symptoms or possible s/e anxiety further improved. sleep intact Review of Systems Respiratory: No cough, No sputum, No wheezing, No shortness of breath, No dyspnea on exertion, No dyspnea at rest, No hemoptysis, No problem reported Cardiovascular: No chest pain, No orthopnea, No PND, No edema, No claudication , No palpitations, No problem reported Abdomen: No pain, No nausea, No vomiting, No diarrhea, No constipation, No GI bleeding, No problem reported Psychiatric: + depression symptoms, + anhedonism Sleep Information Total Hours of Sleep: 7.25 Meal Information Percent of Breakfast Consumed: 75 Percent of Lunch Consumed: 75 Percent of Dinner Consumed: 50 Mental Status Exam During interview pt is: alert and oriented, cooperative Appearance: appropriately dressed Eye contact is: good Motor behavior is: psychomotor retardation Speech: other (more spontaneous speech and wihtout the delay in onset or responses ) Affect: depressed, blunted (but less so then yesterday ) Mood is: depressed (but lessening ) Thought process: linear, logical, clear, coherent Thought content: reality based without delusions (continuing with statements about 's anticipated response to medical bills), hopelessness, worthlessness Suicidal thought are: denied Homicidal thoughts are: denied Hallucinations: denies auditory, denies visual Cognition: attention grossly intact, language grossly intact, other Intelligence estimated to be: average Insight: impaired Judgement: impaired Impression This 46-year-old woman presents with a history of recurrent major depressive episodes that began during late adolescence or early adulthood. Her most recent episode evidently began 1 month or more ago. Patient reportedly ask her mother to kill her several days ago, she acknowledges recurrent suicidal thoughts, and has severe vegetative signs and symptoms of depression that, among other things, have resulted in a 30 pound weight loss with the patient is substantially below her ideal body weight. She requires assistance from her mother for activities of daily living, such as dressing, arising from bed, showering, and eating. The patient acknowledges that she has not been adherent with the recommended medications as prescribed by a tele-psychiatrist, and, more recently, by her primary care physician. paxil 30mg abilify 2.5mg with some mild initial improvement in engagement and expression of her thought process noted. addressing psychosocial stressors, family meeting with mother occurred, pt not letting be aware of admission to date. BP on low side with some fleeting lightheadedness at times, nadine as awakens wt gain is occurring Plan (1) Suicidal ideation 03/06/17 -- the patient acknowledges ongoing intermittent suicidal thoughts. She tells me that she has never had an active suicidal plan, although the record indicates that she did ask her mother to "kill her." She repeatedly did not respond to questions concerning active suicidal intent, but responds instead by saying "I just want to get better." She tells me that she will not make any suicide attempts in the hospital because she fears that this will lengthen her hospital stay. 03/07/17 -- patient is vague about current suicidal ideation, admitting at first , then stating she "just feels sad". 03/08/17 -- patient denies suicidal ideation during this visit, but continues to remain overwhelmed and appears flat in affect and reports ongoing depressive symptoms. (2) Depression 03/06/17 - the patient has been started on paroxetine 20 mg daily, and thus far has been able to tolerate it well. She denies any current side effects. Today, we will increase her dose of Paxil to 30 mg daily, and began aripiprazole 2.5 mg daily as an adjunct. I'm also concerned that the patient may have an underlying psychosis involving her . For example, she trembles with fear when considering whether to inform her that she has been hospitalized because she believes she will "scream at me" and "be furious" because she is using his insurance for the hospitalization. The patient does contract for safety in the hospital, and has some future orientation in that she sets a goal going home to be with her family and "getting better. 03/07/17 - Pt received increased dose of Paxil 30mg along with first dose of Abilify 2.5mg this morning. Received just prior to my visit with her, therefore unable to assess tolerance this early in the dose. Pt is ongoing with concerns that her will react poorly to the news of her hospitalization. She questions plan for medications and it was explained that the increased dose of Paxil and adding Abilify were to target her ongoing depression and suicidal thoughts as well as work to clear any confusion or clouding she may be experiencing. Pt inquires about length of stay and was informed that we would be meeting with her daily to assess her progress and gauge timing of discharge. No changes to psychiatric medications at this time as she just received increased doses today. Tylenol was ordered for her headache which she was told she would need to ask for at the nurses station. 03/08/17 - Pt denies side effects or complaints about medication changes. She received first dose of Abilify 2.5mg yesterday with Paxil increased to 30mg yesterday as well. She states she has tolerated them well. Discussion was had with patient after she admitted she has had difficulty remembering her visits with providers. Intent for starting Abilify as adjunct to target depressive symptoms along with increase in Paxil were explained. Pt asked questions appropriately and inquires as to side effects were addressed. Risks, benefits, side effects, and alternatives were discussed. Ultimately, patient voiced understanding and agreed to current plan. She reports she has noticed an improvement in clearing of her thought process over the past day and is optimistic that this will continue. Will continue to observe for response to Abilify. 03/09/17 -as pt does not appear as thought blocked as described previously and unclear if psychotic features, as is described as rather controlling and perhaps emotionally abusive will maintained newly rx'd paxil and Abilify at current doses for now to help minimize s/e's from emerging. monitoring for continued improvement in clearing of thought processing and expression of her thoughts -Phosphorous, Mg, Ca nl 03/10 -pt having some mild but notable improvement, BP low, but had low readings since early in admission. wt gain is occurring, will maintain meds unchanged for now. 03/11/17 - maintained meds unchanged, monitoring lightheadedness as awakens in morning and low bp trend Discharge / Aftercare Planning Primary Care Physician: Name: Shelly Putnam [place] Date of Appointment: Mar 15, 2017 Time of Appointment: 9:45 a.m. Psychiatrist: Name: [facility], Dr. Anderson Date of Appointment: Mar 21, 2017 Time of Appointment: 11:30 AM Therapist: Name: [facility], Sarah Calhoun Date of Appointment: Mar 13, 2017 Time of Appointment: 4 p.m. Time Clock Mechanic: Name: none Visit Code E&M Code: 97935 Inventory Assets Strengths: Educated. Has a profession. Seeking to advance her career. Supportive family. Actually concerned about her children. Needs: The patient is severely depressed and grossly underweight. A dietary consult is being arranged. 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 She explains that she had become so depressed that she wasn't able to focus, concentrate and attend to her daily tasks at work.) Stable relationships: Yes Supportive family: Yes Good rapport with provider: Yes Absence of risk factors above: No Data Vital Signs Last 24 Hrs: Date Time Temp Pulse Resp B/P (MAP) Pulse Ox O2 Delivery O2 Flow Rate FiO2 03/11/17 06:48 36.5 62 16 93/56 64 91/53 Problem Qualifiers (1) Depression: Depression Type: major depressive disorder Major depression recurrence: recurrent Active/Remission status: currently active Major depression episode severity: severe Psychotic features: without psychotic features Qualified Codes: F33.2 - Major depressive disorder, recurrent severe without psychotic features
[2017-03-11] MEDS: CLONAZEPAM 0.5 MG TAB PO SCH (21:24)
--- NOTE | 2017-03-11 21:32 | NUR ---
Pt continues to isolate during free time. Pt attended unit programming. Only participated when prompted but answered questions appropriately. Pt voiced she was feeling down prior to her family visiting this evening. Pt stated she experiences a lot of negative self talk and when her family comes in they provide support and lift her mood. Pt encouraged to also speak to staff if she is struggling and not to feel she needed to wait until her family came in to seek support. Pt verbalized understanding. Pt also stated she is eating all her meals well but also feeling bloated because she is not used to eating large portions. Suggested to pt to eat 6 small meals/day instead of eating everything all at once. Stressed importance of continuing to eat and pt agreed. Pt remains on suicide precautions.
--- NOTE | 2017-03-12 01:38 | NUR ---
24 hour chart orders reviewed
[2017-03-12 06:52] VITALS: BP_SYST 91; BP_SYST 92; BP_DIAS 57; BP_DIAS 58; PULSE 60; PULSE 62; TEMP 36.6
[2017-03-12] MEDS: CALCIUM 600MG + VIT D 400 IU TAB PO SCH (08:54)
[2017-03-12] MEDS: ARIPIprazole TAB 5 MG TAB PO SCH (08:54)
[2017-03-12] MEDS: MULTIVITAMIN TAB PO SCH (08:54)
[2017-03-12] MEDS: PAROXETINE 20 MG TAB PO SCH (08:54)
[2017-03-12] MEDS: NICOTINE 14 MG/24 HR TDSY TD SCH (08:58)
[2017-03-12] MEDS ORDERED: NCR2 MT (10:48)
[2017-03-12] MEDS ORDERED: CALCTAB7 PO (10:48)
[2017-03-12] MEDS ORDERED: ABL5 PO (10:48)
[2017-03-12] MEDS ORDERED: NICO14DI5 TD (10:48)
[2017-03-12] MEDS ORDERED: PARO30TA3 PO (10:48)
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
--- NOTE | 2017-03-12 11:27 | NUR ---
discharge summary: see interdisciplinary treatment team review for 03/12/17
--- NOTE | 2017-03-12 12:21 | NUR ---
discharged to front entrance at 1220 with family for discharge to home. Discharge instructions given and stated understanding. Belongings were returned.
== END 2017-03-12 12:20 | disposition home or self-care (01) | DRG 885 ==
LOC: C.EDB 12:54 → C.MHU 17:45
PROVIDERS: ADMIT Psychiatry & Neurology Child & Adolescent Psychiatry; ATTEND Psychiatry & Neurology Child & Adolescent Psychiatry
DX: F33.2 Major depressive disorder, recurrent severe without psychotic features (principal); R45.851 Suicidal ideations; Z87.891 Personal history of nicotine dependence

== ENCOUNTER → 2017-04-18 | Outpatient (CLI) | payer OTHER ==
[~2017-04-18] MED LIST changes: +ABL5 PO; -ALPR-411 PO; +CALCTAB7 PO; +CLON0.5T3 PO; -ESCI1TAB6 PO; +MULT-506 PO; +NCR2 MT; -NICO14DI31 TD; +NICO14DI5 TD; +PARO30TA3 PO
--- NOTE | 2017-04-19 15:26 | MAMMOGRAPHY REPORT ---
BILATERAL DIGITAL SCREENING MAMMOGRAM TOMOSYNTHESIS WITH CAD: 04/18/2017 CLINICAL HISTORY: Routine screening. The patient has no current complaints. TECHNIQUE: Breast tomosynthesis in addition to standard 2D mammography was performed. Current study was also evaluated with a Computer Aided Detection (CAD) system. COMPARISON: Comparison is made to exams dated: 06/02/2015 mammogram, 02/10/2013 mammogram - [facility], 09/29/2007, 02/05/2012 mammogram - [facility], 09/29/2007, and . BREAST COMPOSITION: The tissue of both breasts is heterogeneously dense, which may obscure small mas ses. FINDINGS: No suspicious masses, calcifications, or areas of architectural distortion are noted in ei ther breast. There has been no significant interval change compared to prior exams. IMPRESSION: ACR BI-RADS CATEGORY 1: NEGATIVE There is no mammographic evidence of malignancy. A 1 year screening mammogram is recommended. The pa tient will receive written notification of the results. Approximately 10% of breast cancers are not detected with mammography. A negative mammographic report should not delay biopsy if a clinically suggestive mass is present. Lennie Brito M.D. ah/:04/18/2017 15:13:34 [employer]: Olga LEE(Arturo)(M), [facility] letter sent: Normal 1/2 BI-RADS Code: ACR BI-RADS Category 1: Negative
== END | disposition home or self-care (01) ==
LOC: C.MAMM 14:48
PROVIDERS: ATTEND Obstetrics & Gynecology
DX: Z12.31 Encounter for screening mammogram for malignant neoplasm of breast (principal)